=== PATIENT | male | born 1985 | race African-American/Black ===

== ENCOUNTER 2016-11-09 22:20 | Emergency (ER) | payer SELFPAY ==
[~2016-11-09 22:20] MED LIST: ACETAMINOPHEN; KEFLEX500 MG PO
== END 2016-11-09 22:45 | disposition home or self-care (01) ==
LOC: SED 22:20
DX: K02.9 Dental caries, unspecified (principal); I10 Essential (primary) hypertension; F17.200 Nicotine dependence, unspecified, uncomplicated
CPT/HCPCS: 99282